=== PATIENT | male | born 1970 | race Caucasian/White ===

== ENCOUNTER 2019-04-08 21:43 | Inpatient (IN) | payer MEDICAID ==
[~2019-04-08] VITALS: Ht 170.2 cm; Wt 78.6 kg
[~2019-04-08 21:43] MED LIST: IBUP-1985 PO; IBUP-1986 PO
[2019-04-08] MEDS ORDERED: morphine 4 MG/ML inj SYRINge IV ONE (23:25)
[2019-04-08 23:58] LABS: BASOPHILS % (AUTO) 0.5 % (0-1); EOSINOPHILS # (AUTO) 0.1 X10'3 (0-0.9); EOSINOPHILS % (AUTO) 1.3 % (0-6); HEMATOCRIT 42.7 % (42.0-52.0); HEMOGLOBIN 14.7 g/dl (14.0-17.9); LYMPHOCYTES # (AUTO) 2.5 X10'3 (1.1-4.8); LYMPHOCYTES % (AUTO) 24.7 % (21-51); MEAN CORPUSCULAR HEMOGLOBIN 31.2 PG (27.0-31.0); MEAN CORPUSCULAR HGB CONC 34.4 g/dL (33.0-36.5); MEAN CORPUSCULAR VOLUME 90.6 FL (78-98); MONOCYTES # (AUTO) 1.2 X10'3 (0-0.9); MONOCYTES % (AUTO) 11.8 % (2-12); NEUTROPHILS # (AUTO) 6.3 X10'3 (1.8-7.7); NEUTROPHILS % (AUTO) 61.7 % (42-75); PLATELET COUNT 294 X10'3 (140-440); RED BLOOD COUNT 4.71 X10'6 (4.70-6.10); RED CELL DISTRIBUTION WIDTH 13.2 % (11.5-14.5); WHITE BLOOD COUNT 10.2 X10'3 (4.5-11.0)
[2019-04-09 00:08] LABS: ALANINE AMINOTRANSFERASE 37 U/L (12-78); ALBUMIN 3.9 G/DL (3.4-5.0); ALBUMIN/GLOBULIN RATIO 0.8 (1.1-1.5); ALKALINE PHOSPHATASE 87 IU/L (46-116); ANION GAP 10 (8-16); ASPARTATE AMINO TRANSFERASE 59 U/L (10-37); BILIRUBIN,TOTAL 0.8 MG/DL (0.1-1.0); BLOOD UREA NITROGEN 32 MG/DL (7-18); BUN/CREATININE RATIO 19.8 (5.4-32.0); CALCIUM 8.9 MG/DL (8.5-10.1); CHLORIDE 95 MMOL/L (99-107); CREATININE 1.62 MG/DL (0.60-1.10); ETHANOL < 0.010 GM/DL (0.0-0.010); GLUCOSE 83 MG/DL (70-104); POTASSIUM 3.8 MMOL/L (3.5-5.1); SODIUM 132 MMOL/L (135-145); TOTAL CARBON DIOXIDE 27.4 MMOL/L (24-32); TOTAL PROTEIN 8.6 G/DL (6.4-8.2); eGFR 46 ML/MIN
[2019-04-09] MEDS ORDERED: normal saline 1000ML IV soln IVB ONE ×2 (00:25→01:35)
[2019-04-09 00:32] LABS: MAGNESIUM 2.4 MG/DL (1.5-2.4)
[2019-04-09] MEDS ORDERED: ondansetron 4mg rapidly disintigrating tab PO ONE (00:40)
[2019-04-09 01:27] LABS: CREATINE KINASE 2077 U/L (39-308)
[2019-04-09] MEDS ORDERED: sodium bicarbonate (8.4%) inj. 50 MEQ in dextrose 5%-water 1,000 ML IV ONE (01:35)
--- NOTE | 2019-04-09 01:54 | NUR ---
pt states he can't pee and needs to be cathed. relief charge nurse Jarret went in and straight cathed him.
[2019-04-09 02:46] LABS: URINE AMPHETAMINE SCREEN POSITIVE (Neg); URINE BARBITUATE SCREEN NEGATIVE (Neg); URINE BENZODIAZEPINES SCREEN NEGATIVE (Neg); URINE CANNABINOID SCREEN POSITIVE (Neg); URINE COCAINE SCREEN NEGATIVE (Neg); URINE METHADONE SCREEN NEGATIVE (Neg); URINE OPIATE SCREEN POSITIVE (Neg); URINE PHENCYCLIDINE SCREEN NEGATIVE (Neg)
[2019-04-09 02:50] LABS: CLARITY,URINE CLEAR (Clear); COLOR,URINE YELLOW (Yellow); GLUCOSE, URINE NEGATIVE (Neg); KETONES,URINE 15 mg/dl (Neg); LEUKOCYTE ESTERASE ,URINE NEGATIVE (Neg); NITRITES, URINE NEGATIVE (Neg); OCCULT BLOOD,URINE SMALL (Neg); PROTEIN,URINE TRACE mg/dl (Neg); UROBILINOGEN,URINE 0.2 E.U/dL (0.2-1.0)
[2019-04-09 02:55] LABS: UA COLLECTION TYPE STRAIGHT CATH
[2019-04-09] MEDS ORDERED: bisacodyl 10mg suppository rectal RC PRN (02:55)
[2019-04-09] MEDS ORDERED: potassium CL 10mEq/100ml bag 100 ML IV PRN (02:55)
[2019-04-09] MEDS ORDERED: magnesium hydroxide 30ml (MOM) UD suspension PO PRN (02:55)
[2019-04-09] MEDS ORDERED: magnesium 2GM in 50ml NS 50 ML IV PRN (02:55)
[2019-04-09] MEDS ORDERED: acetaminophen 325mg tablet PO PRN (02:55)
[2019-04-09] MEDS ORDERED: potassium Cl 40MEQ/NS 500ml 500 ML IV PRN (02:55)
[2019-04-09] MEDS ORDERED: HYDROcodone/acetaminophen 5mg/325mg tablet PO PRN (02:55)
[2019-04-09] MEDS ORDERED: potassium Cl 20 mEq SR tablet PO PRN ×2 (02:55)
[2019-04-09] MEDS ORDERED: magnesium Cl slow-release 64mg tablet PO PRN (02:55)
[2019-04-09] MEDS ORDERED: mag hydrox/Alum hydrox/simeth 30ml oral suspension PO PRN (02:55)
[2019-04-09] MEDS ORDERED: ondansetron/PF 4mg/2ml inj IV PRN (02:55)
[2019-04-09] MEDS ORDERED: magnesium 4gm in 100ml NS 100 ML IV PRN (02:55)
[2019-04-09] MEDS ORDERED: morphine 2 MG/ML inj. syringe IV PRN ×2 (02:55)
[2019-04-09 02:56] LABS: BACTERIA,URINE FEW /HPF (Neg); RBC,URINE 0-2 /HPF (0-2); SPERM FEW /HPF (NEGATIVE); SQUAMOUS EPITHELIAL CELL,UR FEW /LPF (FEW); WBC,URINE 0-4 /HPF (0-4)
[2019-04-09] MEDS ORDERED: LORazepam 2 mg/ml vial IV PRN (03:00)
[2019-04-09] MEDS ORDERED: SODIUM BICARBONATE IV SCH ×2 (03:00)
[2019-04-09] MEDS: ESOMEPRAZOLE 40 MG VIAL IV SCH ×2 (03:00→07:52)
[2019-04-09] MEDS ORDERED: POTASSIUM CL IV SCH ×2 (03:00)
[2019-04-09] MEDS ORDERED: 1/2 NS IV SCH ×2 (03:00)
--- NOTE | 2019-04-09 03:30 | NUR ---
I have received report from Brittni HERNANDEZ and had the opportunity to ask questions and now awaiting pt arrival.
[2019-04-09 04:00] VITALS: BP 101/55
--- NOTE | 2019-04-09 04:00 | NUR ---
pt arrived. A/Ox4, no signs of distress. call light and frq used belonging within reach. oriented to room. wound care pictures done. will continue to monitor. pt
[2019-04-09 06:00] VITALS: BP 98/55
--- NOTE | 2019-04-09 06:13 | NUR ---
received report from janice davila
--- NOTE | 2019-04-09 06:28 | NUR ---
Problems reprioritized. Patient report given, questions answered & plan of care reviewed with Arlyn HERNANDEZ.
[2019-04-09] MEDS: sodium bicarbonate (8.4%) inj. 50 MEQ, Potassium Cl inj 20 MEQ in sodium chloride 0.45%... IV SCH ×2 (07:39→13:20)
[2019-04-09] MEDS: K and/or MAG REPLACEMENT MC SCH (07:47)
[2019-04-09] MEDS: docusate sod 100mg capsule PO SCH ×2 (07:51→21:22)
--- NOTE | 2019-04-09 08:00 | NUR ---
since pt is unable on feet unable to obtain pt ortho static vs at this time
[2019-04-09] MEDS ORDERED: NO HOME MEDS (09:32)
[2019-04-09 09:55] LABS: CREATINE KINASE 1808 U/L (39-308)
[2019-04-09 10:00] VITALS: BP 93/50
[2019-04-09] MEDS: HYDROcodone/acetaminophen 10/325mg tab PO PRN ×3 (13:22→21:23)
[2019-04-09 18:00] VITALS: BP 100/58
--- NOTE | 2019-04-09 18:28 | NUR ---
GAVE REPORT TO DAVID TOLLIVER
--- NOTE | 2019-04-09 20:00 | NUR ---
Patient in room ORTHO 4020. I have received report from Arlyn HERNANDEZ and had the opportunity to ask questions and assume patient care.
[2019-04-09] MEDS: normal saline 1000ml 1,000 ML IV SCH (21:23)
[2019-04-09 22:00] VITALS: BP 105/63
[2019-04-10] MEDS: normal saline 1000ml 1,000 ML IV SCH ×2 (02:51→04:04)
[2019-04-10 06:00] VITALS: BP 109/61
[2019-04-10 06:09] LABS: BASOPHILS % (AUTO) 0.7 % (0-1); EOSINOPHILS # (AUTO) 0.2 X10'3 (0-0.9); EOSINOPHILS % (AUTO) 4.8 % (0-6); HEMATOCRIT 34.7 % (42.0-52.0); HEMOGLOBIN 11.8 g/dl (14.0-17.9); LYMPHOCYTES # (AUTO) 2.2 X10'3 (1.1-4.8); MEAN CORPUSCULAR HGB CONC 33.9 g/dL (33.0-36.5); MEAN CORPUSCULAR VOLUME 91.3 FL (78-98); MONOCYTES # (AUTO) 0.6 X10'3 (0-0.9); MONOCYTES % (AUTO) 12.8 % (2-12); NEUTROPHILS # (AUTO) 1.7 X10'3 (1.8-7.7); NEUTROPHILS % (AUTO) 35.7 % (42-75); PLATELET COUNT 195 X10'3 (140-440); RED CELL DISTRIBUTION WIDTH 13.5 % (11.5-14.5); WHITE BLOOD COUNT 4.8 X10'3 (4.5-11.0)
--- NOTE | 2019-04-10 06:14 | NUR ---
Problems reprioritized. Patient report given, questions answered & plan of care reviewed with Arlyn HERNANDEZ.
--- NOTE | 2019-04-10 06:17 | NUR ---
received report from janice street
[2019-04-10 06:31] LABS: ALBUMIN 2.8 G/DL (3.4-5.0); ANION GAP 6 (8-16); BLOOD UREA NITROGEN 10 MG/DL (7-18); BUN/CREATININE RATIO 11.5 (5.4-32.0); CALCIUM 8.1 MG/DL (8.5-10.1); CHLORIDE 107 MMOL/L (99-107); CREATININE 0.87 MG/DL (0.60-1.10); GLUCOSE 83 MG/DL (70-104); MAGNESIUM 2.3 MG/DL (1.5-2.4); SODIUM 141 MMOL/L (135-145); TOTAL CARBON DIOXIDE 28.3 MMOL/L (24-32); eGFR > 90 ML/MIN
[2019-04-10 06:37] LABS: CREATINE KINASE 1400 U/L (39-308)
[2019-04-10] MEDS: K and/or MAG REPLACEMENT MC SCH (07:10)
[2019-04-10] MEDS: docusate sod 100mg capsule PO SCH (07:13)
[2019-04-10] MEDS: ESOMEPRAZOLE 40 MG VIAL IV SCH (07:15)
[2019-04-10] MEDS: HYDROcodone/acetaminophen 10/325mg tab PO PRN (08:14)
[2019-04-10 10:00] VITALS: BP 100/58
--- NOTE | 2019-04-10 14:50 | NUR ---
pt d/c with instructions, understanding of instructions and w/all belongings in wheelchair to go home and f/u w/pcp
== END 2019-04-10 14:50 | disposition home or self-care (01) | DRG 53 ==
LOC: ER 21:43 → ORTHO 4S 04-09 04:26 → CMPBEDREQ 04-09 19:46
PROVIDERS: ADMIT Internal Medicine; ATTEND Hospitalist
PROC: 4A10X4Z Monitoring of Central Nervous Electrical Activity, External Approach (ICD-10-PCS; principal; 2019-04-09)
DX: G40.909 Epilepsy, unspecified, not intractable, without status epilepticus (principal); N17.9 Acute kidney failure, unspecified; M62.82 Rhabdomyolysis; F12.90 Cannabis use, unspecified, uncomplicated; G89.29 Other chronic pain; Z87.891 Personal history of nicotine dependence; Z88.0 Allergy status to penicillin
CPT/HCPCS: 36415; 70450; 73502; 80048; 80053; 80305; 80320; 81001; 82550; 83735; 83874; 85025; 87070; 95816; 96361; 96374; 97116; 99285; G0378; J2270; J2405; J7030

== ENCOUNTER 2021-02-24 18:11 | Emergency (ER) | payer MEDICAID ==
[~2021-02-24] VITALS: Ht 172.7 cm; Wt 63.0 kg
[2021-02-24 18:15] VITALS: BP 140/80
[2021-02-24] MEDS ORDERED: acetaminophen 325mg tablet PO ONE (19:20)
== END 2021-02-24 19:50 | disposition home or self-care (01) ==
LOC: ER 18:11
DX: M25.522 Pain in left elbow (principal); G89.29 Other chronic pain; F12.90 Cannabis use, unspecified, uncomplicated; Z98.890 Other specified postprocedural states; Z88.0 Allergy status to penicillin; V19.9XXA Pedal cyclist (driver) (passenger) injured in unspecified traffic accident, initial encounter; Y93.89 Activity, other specified; Y92.488 Other paved roadways as the place of occurrence of the external cause; Y99.8 Other external cause status
CPT/HCPCS: 11740; 29105; 73080; 99283

== ENCOUNTER 2022-01-18 16:51 | Emergency (ER) | payer MEDICAID ==
[~2022-01-18] VITALS: Ht 170.2 cm; Wt 72.7 kg
[2022-01-18] MEDS ORDERED: haloperidol lactate 5mg/ml inj IM ONE (17:30)
[2022-01-18] MEDS ORDERED: LORazepam 2 mg/ml vial IM ONE (17:30)
[2022-01-18] MEDS ORDERED: diphenhydrAMINE 50 mg/ml inj IM ONE (17:30)
[2022-01-18 18:01] LABS: BASOPHILS % (AUTO) 0.5 % (0-1); EOSINOPHILS # (AUTO) 0.1 X10'3 (0-0.9); EOSINOPHILS % (AUTO) 0.6 % (0-6); HEMOGLOBIN 14.1 g/dl (14.0-17.9); LYMPHOCYTES # (AUTO) 1.6 X10'3 (1.1-4.8); LYMPHOCYTES % (AUTO) 15.1 % (21-51); MEAN CORPUSCULAR HEMOGLOBIN 30.6 PG (27.0-31.0); MEAN CORPUSCULAR HGB CONC 33.5 g/dL (33.0-36.5); MEAN CORPUSCULAR VOLUME 91.4 FL (78-98); MEAN PLATELET VOLUME 8.7 FL (7.4-10.4); MONOCYTES # (AUTO) 0.8 X10'3 (0-0.9); MONOCYTES % (AUTO) 7.2 % (2-12); NEUTROPHILS # (AUTO) 8.1 X10'3 (1.8-7.7); NEUTROPHILS % (AUTO) 76.6 % (42-75); PLATELET COUNT 328 X10'3 (140-440); RED BLOOD COUNT 4.59 X10'6 (4.70-6.10); RED CELL DISTRIBUTION WIDTH 13.7 % (11.5-14.5); WHITE BLOOD COUNT 10.5 X10'3 (4.5-11.0)
[2022-01-18 18:12] LABS: ALANINE AMINOTRANSFERASE 25 U/L (12-78); ALBUMIN 4.1 G/DL (3.4-5.0); ALKALINE PHOSPHATASE 95 IU/L (46-116); ANION GAP 10 (8-16); ASPARTATE AMINO TRANSFERASE 22 U/L (10-37); BILIRUBIN,TOTAL 0.3 MG/DL (0.1-1.0); BLOOD UREA NITROGEN 25 MG/DL (7-18); BUN/CREATININE RATIO 20.3 (5.4-32.0); CALCIUM 8.9 MG/DL (8.5-10.1); CHLORIDE 105 MMOL/L (99-107); CREATININE 1.23 MG/DL (0.60-1.10); GLUCOSE 89 MG/DL (70-104); POTASSIUM 4.2 MMOL/L (3.5-5.1); SODIUM 140 MMOL/L (135-145); TOTAL CARBON DIOXIDE 24.6 MMOL/L (24-32); TOTAL PROTEIN 8.3 G/DL (6.4-8.2); eGFR 63 ML/MIN
[2022-01-18 18:23] LABS: ETHANOL < 0.010 GM/DL (0.0-0.010)
[2022-01-18] MEDS ORDERED: normal saline 1000ML IV soln IVB ONE (18:25)
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
[2022-01-18 22:52] LABS: CLARITY,URINE CLEAR (Clear); COLOR,URINE YELLOW (Yellow); GLUCOSE, URINE NEGATIVE (Neg); KETONES,URINE NEGATIVE (Neg); LEUKOCYTE ESTERASE ,URINE NEGATIVE (Neg); NITRITES, URINE NEGATIVE (Neg); OCCULT BLOOD,URINE NEGATIVE (Neg); PROTEIN,URINE NEGATIVE (Neg); UROBILINOGEN,URINE 0.2 E.U/dL (0.2-1.0)
[2022-01-18 22:55] LABS: UA COLLECTION TYPE STRAIGHT CATH
[2022-01-18 23:01] LABS: URINE AMPHETAMINE SCREEN POSITIVE (Neg); URINE BARBITUATE SCREEN NEGATIVE (Neg); URINE BENZODIAZEPINES SCREEN NEGATIVE (Neg); URINE CANNABINOID SCREEN POSITIVE (Neg); URINE COCAINE SCREEN NEGATIVE (Neg); URINE METHADONE SCREEN NEGATIVE (Neg); URINE OPIATE SCREEN NEGATIVE (Neg); URINE PHENCYCLIDINE SCREEN NEGATIVE (Neg)
[2022-01-18] MEDS ORDERED: NO HOME MEDS (23:18)
--- NOTE | 2022-01-19 01:33 | NUR ---
Pt is laying in bed sleeping. RR even and unlabored appears to be resting comfortably.
--- NOTE | 2022-01-19 02:04 | NUR ---
PT IN BED SLEEPING. EVEN, UNLABORED BREATHING.
--- NOTE | 2022-01-19 05:08 | NUR ---
IV DC'd. Pt is asleep rr even and unlabored.
[2022-01-19 06:05] VITALS: BP 116/78
--- NOTE | 2022-01-19 07:09 | NUR ---
pt appears to be sleeping. no s/s respiratory distress-equal and unlabored respirations.
== END 2022-01-19 11:31 | disposition home or self-care (01) ==
LOC: ER 16:52
DX: F23 Brief psychotic disorder (principal); Z20.822 Contact with and (suspected) exposure to COVID-19; F15.10 Other stimulant abuse, uncomplicated; G89.29 Other chronic pain; F12.90 Cannabis use, unspecified, uncomplicated; Z98.890 Other specified postprocedural states; Z88.0 Allergy status to penicillin
CPT/HCPCS: 36415; 73590; 80053; 80305; 80320; 81003; 84443; 85025; 87635; 96360; 96361; 96372; 99284; C9803; J1200; J1630; J2060; J7030